=== PATIENT | male | born 1980 | race Caucasian/White ===

== ENCOUNTER 2017-12-24 18:05 | Emergency (ER) | payer SELFPAY ==
[2017-12-24 18:12] VITALS: BP 148/90; PULSE 88; RESP 20; TEMP 97.6; O2SAT 100
[2017-12-24] MEDS ORDERED: LORazepam 2 MG/ML VIAL IV PUSH ONE (19:00)
[2017-12-24] MEDS ORDERED: SODIUM CHLOR 0.9% 1000 ML INJ 1,000 ML IV ONE (19:00)
[2017-12-24 19:55] LABS: BASOPHIL # 0.1 TH/MM3 (0-0.2); BASOPHIL % 1.2 % (0.0-2.0); EOSINOPHIL % 0.8 % (0.0-4.0); HEMATOCRIT 42.3 % (39.0-51.0); HEMOGLOBIN 14.1 GM/DL (13.0-17.0); LYMPH % 20.3 % (9.0-44.0); LYMPHOCYTE # 1.1 TH/MM3 (1.0-4.8); MEAN CORPUSCULAR HEMOGLOBIN 28.7 PG (27.0-34.0); MEAN CORPUSCULAR HGB CONC 33.4 % (32.0-36.0); MEAN PLATELET VOLUME 8.7 FL (7.0-11.0); MONO % 6.5 % (0.0-8.0); MONOCYTE # 0.4 TH/MM3 (0-0.9); NEUT % 71.2 % (16.0-70.0); PLATELET COUNT 226 TH/MM3 (150-450); RED BLOOD COUNT 4.92 MIL/MM3 (4.50-5.90); RED CELL DISTRIBUTION WIDTH 14.4 % (11.6-17.2); WHITE BLOOD COUNT 5.6 TH/MM3 (4.0-11.0)
[2017-12-24 20:22] LABS: BICARBONATE 24.9 MEQ/L (21.0-32.0); CALCIUM 9.3 MG/DL (8.5-10.1); CREATININE 1.11 MG/DL (0.60-1.30)
[2017-12-24 20:30] VITALS: BP 121/68; PULSE 84; RESP 18; O2SAT 95
--- NOTE | 2017-12-24 20:50 | PD ---
HPI Chief Complaint: OD/ Ingestion Time Seen by Provider: 18:27 Travel History International Travel<30 days: No Contact w/Intl Traveler<30days: No Traveled to known affect area: No History of Present Illness HPI Patient 37-year-old male presents emergency department for evaluation. Patient states he injected an unknown substance into bilateral arms today and has significant pain in his veins and feels a salty taste in his mouth and thinks he was given salt water to inject himself with. The patient appears to be under the influence of some substance and appears to have some delirium. He is very hypervigilant. He denies any chest pain shortness of breath abdominal pain nausea or vomiting. Denies any headache. He thinks that he is injected a life-threatening substance into his veins and needs check. States it started just prior to arrival, severe, location is bilateral forearms, context as above per [facility] Past Medical History Medical History: Denies Significant Hx Tetanus Vaccination: Unknown Influenza Vaccination: No Past Surgical History Other Surgery: Yes (nose and left thumb sx) Social History Alcohol Use: No (every once and a while) Tobacco Use: No (1 ppd) Substance Use: No (denied) Allergies-Medications (Allergen,Severity, Reaction): Coded Allergies: No Known Allergies (Unverified , 12/24/17) Reported Meds & Prescriptions Reported Meds & Active Scripts Active No Active Prescriptions or Reported Medications Review of Systems Except as stated in HPI: all other systems reviewed are Neg Physical Exam Narrative GENERAL: Well-developed well-nourished hypervigilant, delirious. SKIN: Focused skin assessment warm/dry. HEAD: Atraumatic. Normocephalic. EYES: Pupils equal and round. No scleral icterus. No injection or drainage. Pupils dilated ENT: No nasal bleeding or discharge. Mucous membranes pink and dry. NECK: Trachea midline. No JVD. CARDIOVASCULAR: Regular rate and rhythm. No murmur appreciated. RESPIRATORY: No accessory muscle use. Clear to auscultation. Breath sounds equal bilaterally. GASTROINTESTINAL: Abdomen soft, non-tender, nondistended. Hepatic and splenic margins not palpable. MUSCULOSKELETAL: No obvious deformities. No clubbing. No cyanosis. No edema. NEUROLOGICAL: Awake and alert. No obvious cranial nerve deficits. Motor grossly within normal limits. Normal speech. PSYCHIATRIC: Appropriate mood and affect; insight and judgment normal. Data Data Last Documented VS Vital Signs Date Time Temp Pulse Resp B/P (MAP) Pulse Ox O2 Delivery O2 Flow Rate FiO2 12/24/17 18:12 97.6 88 20 148/90 (109) 100 Orders Orders Complete Blood Count With Diff (12/24/17 18:48) Basic Metabolic Panel (Bmp) (12/24/17 18:48) Lorazepam Inj (Ativan Inj) (12/24/17 19:00) Creatine Kinase (Cpk) (12/24/17 18:48) Sodium Chlor 0.9% 1000 Ml Inj (Ns 1000 M (12/24/17 19:00) CKMB (12/24/17 19:40) CKMB% (12/24/17 19:40) Ed Discharge Order (12/24/17 20:50) Labs Laboratory Tests Test 12/24/17 19:40 White Blood Count 5.6 TH/MM3 Red Blood Count 4.92 MIL/MM3 Hemoglobin 14.1 GM/DL Hematocrit 42.3 % Mean Corpuscular Volume 86.0 FL Mean Corpuscular Hemoglobin 28.7 PG Mean Corpuscular Hemoglobin Concent 33.4 % Red Cell Distribution Width 14.4 % Platelet Count 226 TH/MM3 Mean Platelet Volume 8.7 FL Neutrophils (%) (Auto) 71.2 % Lymphocytes (%) (Auto) 20.3 % Monocytes (%) (Auto) 6.5 % Eosinophils (%) (Auto) 0.8 % Basophils (%) (Auto) 1.2 % Neutrophils # (Auto) 4.0 TH/MM3 Lymphocytes # (Auto) 1.1 TH/MM3 Monocytes # (Auto) 0.4 TH/MM3 Eosinophils # (Auto) 0.0 TH/MM3 Basophils # (Auto) 0.1 TH/MM3 CBC Comment DIFF FINAL Differential Comment Blood Urea Nitrogen 13 MG/DL Creatinine 1.11 MG/DL Random Glucose 86 MG/DL Calcium Level 9.3 MG/DL Sodium Level 136 MEQ/L Potassium Level 4.0 MEQ/L Chloride Level 101 MEQ/L Carbon Dioxide Level 24.9 MEQ/L Anion Gap 10 MEQ/L Estimat Glomerular Filtration Rate 75 ML/MIN Total Creatine Kinase 440 U/L Creatine Kinase MB 2.5 NG/ML Creatine Kinase MB % 0.6 % MDM Medical Decision Making Medical Screen Exam Complete: Yes Emergency Medical Condition: Yes Differential Diagnosis Substance-induced delirium, intoxication, dehydration, electrolyte abnormality. Narrative Course Patient room to the emergency department, normal saline given, labs reassuring. After Ativan he is sleeping soundly, still aroused to a hypervigilant state. He states he has a ride home but none has been available yet. We will continue to watch him in the emergency department until his ride arrives. Otherwise he is medically cleared for discharge. Diagnosis Primary Impression: Substance intoxication delirium Referrals: [facility] No Active Prescriptions or Reported Meds Disposition: 01 DISCHARGE HOME Condition: Stable Ranjan Daley MD Dec 24, 2017 20:50
== END 2017-12-25 01:50 | disposition home or self-care (01) ==
LOC: NEPD 18:05
DX: T65.91XA Toxic effect of unspecified substance, accidental (unintentional), initial encounter (principal); R41.0 Disorientation, unspecified
CPT/HCPCS: 80048; 82550; 82552; 85025; 96374; 99284; J2060; J7030